=== PATIENT | male | born 1970 | race Caucasian/White ===

== ENCOUNTER 2018-05-20 01:41 | Emergency (ER) | payer BC, MEDICARE ==
[2018-05-20] MEDS: oxyCODONE/APAP 5/325 1 TAB TABLET PO (02:10)
== END 2018-05-20 03:45 | disposition home or self-care (01) ==
LOC: ER 01:41
DX: F31.9 Bipolar disorder, unspecified (principal); S83.91XA Sprain of unspecified site of right knee, initial encounter; F20.9 Schizophrenia, unspecified; J45.909 Unspecified asthma, uncomplicated; Z88.0 Allergy status to penicillin; Z88.1 Allergy status to other antibiotic agents; Z88.5 Allergy status to narcotic agent; Z91.013 Allergy to seafood; Z91.018 Allergy to other foods; Z88.6 Allergy status to analgesic agent; W01.0XXA Fall on same level from slipping, tripping and stumbling without subsequent striking against object, initial encounter; Y93.89 Activity, other specified; Y92.59 Other trade areas as the place of occurrence of the external cause; Y99.8 Other external cause status
CPT/HCPCS: 29505; 73562; 99284

== ENCOUNTER 2018-09-16 03:22 | Emergency (ER) | payer BC, MEDICAID ==
[~2018-09-16] VITALS: Ht 195.6 cm; Wt 140.6 kg
[~2018-09-16 03:22] MED LIST: OXYC-323 PO; PERM60CR12 TP; PHEN100C PO; [UNRECOGNIZED DRUG - OTHER]; [UNRECOGNIZED DRUG - OTHER]; [UNRECOGNIZED DRUG - REMARK]
[2018-09-16] MEDS ORDERED: IPRATRPIUM/ALBUTEROL 0.5/2.5MG 3 ML NEBU. NEB ONE (03:45)
[2018-09-16] MEDS ORDERED: predniSONE 20 MG TABLET PO ONE (04:15)
[2018-09-16] MEDS ORDERED: AZITHROMYCIN 250 MG TABLET. PO ONE (04:15)
[2018-09-16] MEDS ORDERED: ALBUTEROL SULFATE 2.5 MG/3 ML NEBU. NEB ONE (04:15)
[2018-09-16] MEDS ORDERED: ALBUTEROL SULFATE 2.5 MG/3 ML NEBU. ONE (04:16)
--- NOTE | 2018-09-16 04:21 | PHYS DOC ---
Past Medical History Past Medical History: Diabetes-Type II Additional Past Medical Histor: prostate cancer, PTSD, bipolar, schizoeffective Past Surgical History: Other Additional Past Surgical Histo: L acl and lcl repair 1 yr, R acl repair 3 yr, L shoulder repair Alcohol Use: Rarely Drug Use: None Adult General Chief Complaint Chief Complaint: NAUSEA/VOMITING/DIARRHA HPI HPI Patient is a 48 year old male who presents with ongoing cough and cold symptoms. The patient has been ill over the last 2-3 weeks. He complains of cough with rhinorrhea and nasal congestion, chills. He was evaluated at his primary care doctor's office over 10 days ago when he was diagnosed with influenza. The patient states he did have a swab taken and the test was positive. He was treated with Tamiflu. The patient did improve for a couple of days but then 5 days later developed worsening cough productive of purulent sputum, chills, general myalgias and malaise. Body aches. This evening, he became short of breath so he came to the ER. He does not have a history of asthma or COPD or other lung problems. He takes no inhalers at home. He describes an episode of post tussive emesis at home which prompted his ER visit. Review of Systems Review of Systems Constitutional: Denies fever or chills Eyes: Denies change in visual acuity HENT: Denies nasal congestion or sore throat Respiratory: + cough and shortness of breath Cardiovascular: No additional information not addressed in HPI GI: Denies abdominal pain, nausea : Denies dysuria Musculoskeletal: Denies back pain Integument: Denies rash or skin lesions Endocrine: Denies polyuria or polydipsia All other systems were reviewed and found to be within normal limits, except as documented in this note. Current Medications Current Medications Current Medications Medications (Trade) Dose Ordered Sig/William Start Time Stop Time Status Last Admin Dose Admin Albuterol Sulfate (Ventolin Neb Soln) 2.5 mg STK-MED ONCE 09/16/18 04:16 09/16/18 04:17 DC Albuterol/ Ipratropium (Duoneb) 3 ml 1X ONCE 09/16/18 03:45 09/16/18 03:46 DC 09/16/18 03:43 3 ML Azithromycin (Zithromax) 500 mg 1X ONCE 09/16/18 04:15 09/16/18 04:16 DC 09/16/18 04:18 500 MG Prednisone (Prednisone) 60 mg 1X ONCE 09/16/18 04:15 09/16/18 04:16 DC 09/16/18 04:19 60 MG Allergies Allergies Allergies Coded Allergies Type Severity Reaction Last Updated Verified Penicillins Allergy Intermediate 08/24/16 Yes amoxicillin Allergy Intermediate 08/24/16 Yes aspirin Allergy Intermediate 08/24/16 Yes banana Allergy Intermediate 05/20/18 Yes strawberry Allergy Intermediate 08/24/16 Yes morphine Allergy Mild n/v 05/20/18 Yes shrimp Allergy Mild Nausea and Vomiting 08/23/16 Yes Physical Exam Physical Exam Constitutional: Well developed, well nourished, no acute distress, non-toxic appearance HENT: Normocephalic, atraumatic, bilateral external ears normal, oropharynx moist, no oral exudates, nose normal Eyes: PERRLA, EOMI, conjunctiva normal, no discharge Neck: Normal range of motion Cardiovascular:Heart rate regular rhythm, no murmur Lungs & Thorax: good air mvt throughout but faint, scattered wheezes bilaterally, no increased work of breathing Abdomen: Bowel sounds normal Skin: Warm, dry, no erythema, no rash Extremities: no edema Neurologic: Alert and oriented X 3 Psychologic: Affect normal Current Patient Data Vital Signs Vital Signs Date Time Temp Pulse Resp B/P (MAP) Pulse Ox O2 Delivery O2 Flow Rate FiO2 09/16/18 04:22 94 Room Air 09/16/18 03:26 98.2 90 18 157/100 (119) 98.2 Lab Values Laboratory Tests Test 09/16/18 04:29 POC Troponin I 0.00 ng/ml (<0.08) EKG EKG No STEMI Interpretation Time: 04:35 Radiology/Procedures Radiology/Procedures [] Course & Med Decision Making Course & Med Decision Making Pertinent Labs and Imaging studies reviewed. (See chart for details) Patient is seen and examined for worsening cough and dyspnea in the setting of post-influenza infection. Concern is present for secondary bacterial pneumonia but the patient is very well-appearing with normal vitals. Non-toxic. He does have a few scattered wheezes but no hx of lung disease. In the ER, he was given 2 albuterol nebulized treatments which did improve his symptoms subjectively. Wheezes were also improved. He had no increased work of breathing. He did have some complaints of musculoskeletal type chest pain over the last two weeks that was worse with cough and deep inspiration. Because of this troponin and EKG were completed and were normal. Given his wheezes, he was started on prednisone. Also on azithromycin for likely PNA. Will discharge home on the same. Also given albuterol to use q4h over the next 2 days while awake. Patient advised to f/u with PCP or return to the ER for any new or worsening symptoms. Dragon Disclaimer Maria Gon Disclaimer This electronic medical record was generated, in whole or in part, using a voice recognition dictation system. Departure Departure Referrals: CATARINA MARVIN (PCP) Scripts Albuterol Sulfate (PROAIR HFA INHALER) 8.5 Gm Hfa.aer.ad 1 PUFF INH PRN Q6HRS PRN for SHORTNESS OF BREATH, #1 INHALER 0 Refills Prov: AYLEEN WHITAKER DO 09/16/18 Azithromycin (AZITHROMYCIN TABLET) 250 Mg Tablet 250 MG PO DAILY for ANTI-BIOTIC for 4 Days, #4 TAB 0 Refills Prov: AYLEEN WHITAKER DO 09/16/18 Prednisone (PREDNISONE) 50 Mg Tablet 1 TAB PO DAILY, #4 TAB Prov: AYLEEN WHITAKER DO 09/16/18 AYLEEN WHITAKER DO Sep 16, 2018 04:21
[2018-09-16 04:45] VITALS: BP 140/66
[2018-09-16] MEDS ORDERED: AZIT250T6 PO (04:49)
[2018-09-16] MEDS ORDERED: PRED50TA PO (04:49)
[2018-09-16] MEDS ORDERED: PROAIR HFA8.5 GM INH (04:49)
--- NOTE | 2018-09-16 05:16 | RAD ---
PORTABLE CHEST 1V Clinical History: Productive cough Technique: AP view of the chest was obtained at 09/16/2018 3:40 AM. Comparison: None. Findings: The cardiomediastinal silhouette is normal. The pulmonary vasculature is normal. The lungs and pleural margins are clear. Impression: No evidence of an acute cardiopulmonary process. Electronically signed by: Teddy Park III, MD (09/16/2018 5:13 AM) [id number]
--- NOTE | 2018-09-16 06:38 | EKG ---
[facility] [address] [place] [id number] Test Date: 2018-09-16 Test Time: 04:34:16 Pat Name: GREG THOMAS Department: Room: Gender: M Digital Developer: : [id number] Requested By: AYLEEN WHITAKER Order Number: [id number] Reading MD: Kj Mathew MD Measurements Intervals [place] Rate: 97 P: 51 AL: 158 QRS: 27 QRSD: 86 T: 34 QT: 336 QTc: 431 Interpretive Statements SINUS RHYTHM VENTRICULAR PREMATURE COMPLEX(ES) Electronically Signed On 09-19-2018 13:53:05 [employer] [place] by Kj Mathew MD
== END 2018-09-16 05:00 | disposition home or self-care (01) ==
LOC: ER 03:22
DX: R05 Cough (principal); R07.89 Other chest pain; M79.10 Myalgia, unspecified site; R53.81 Other malaise; F43.10 Post-traumatic stress disorder, unspecified; E11.9 Type 2 diabetes mellitus without complications; F31.9 Bipolar disorder, unspecified; Z88.0 Allergy status to penicillin; Z88.1 Allergy status to other antibiotic agents; Z88.5 Allergy status to narcotic agent; Z88.6 Allergy status to analgesic agent; Z91.013 Allergy to seafood; Z91.018 Allergy to other foods
CPT/HCPCS: 71045; 84484; 93005; 94640; 99284; J7512; J7613; J7620; Q0144